=== PATIENT | male | born 1985 | race African-American/Black ===

== ENCOUNTER 2025-07-01 08:46 | Inpatient (IN) | payer OTHER ==
[2025-07-01] MEDS ORDERED: NA CHLORIDE 0.9% 500 ML ONE (09:03)
[2025-07-01 09:48] LABS: Absolute Lymphocytes (CBC) 1.0 K/uL (0.7-4.9); Hematocrit 31.9 % (39.6-49.0); Hemoglobin 10.8 g/dL (13.6-17.9); MCH 30.1 pg (27.0-35.0); MCHC 33.8 g/dL (32.0-36.0); MCV 89.0 fL (80-100); MPV 7.9 fL (7.6-11.3); Nucleated RBC Absolute Count 0.0 (0-0); Nucleated Red Blood Cells % 0.4 % (0-0); RBC Red Blood Cell Count 3.59 M/uL (4.33-5.43); White Blood Count 4.40 thou/uL (4.3-10.9)
[2025-07-01 09:53] LABS: PT Prothrombin Time 13.6 SECONDS (10-13.0); Protime INR 1.21
[2025-07-01 10:00] LABS: Influenza A Ag Negative; Influenza B Ag Positive; SARS-CoV-2 Antigen Rapid Res Negative (Negative)
[2025-07-01 10:11] LABS: ALT/SGPT 28 U/L (16-61); AST/SGOT 34 U/L (15-37); Albumin 3.4 g/dL (3.4-5.0); Albumin/Globulin Ratio 0.9 (1.1-1.8); Alkaline Phosphatase 77 U/L (45-117); Anion Gap 14.6 mEq/L (5.0-15.0); BUN Blood Urea Nitrogen 44 mg/dL (7-18); Globulin 3.9 g/dL (2.3-3.5); Glucose Level 110 mg/dL (74-106); Magnesium 2.1 mg/dL (1.6-2.4); NT PRO-BNP 2770 pg/mL (<125); Potassium 3.6 mEq/L (3.5-5.1)
--- NOTE | 2025-07-01 10:15 | RAD REPORT ---
EXAMINATION: ONE VIEW CHEST XR CLINICAL INDICATION: CONGESTION TECHNIQUE: Frontal chest projection is submitted. Examination is limited by patient positioning and t echnique. COMPARISON: No prior exam. FINDINGS: The lungs are well inflated and clear. The heart is mildly enlarged. No displaced fractures identifie d. IMPRESSION: No acute intrathoracic abnormalities.
[2025-07-01] MEDS ORDERED: OSELTAMIVIR 75 MG CAP PO ONE (10:24)
[2025-07-01 10:36] LABS: Bilirubin Indirect, Calculated 0.2 mg/dL (0.2-0.8)
[2025-07-01 10:37] LABS: Troponin High Sensitivity 518.5 pg/mL (<58.9)
[2025-07-01] MEDS ORDERED: ASPIRIN 81 MG CHEWABLE TABLET ONE (10:50)
--- NOTE | 2025-07-01 10:56 | EDPHYS ---
Physician Documentation [facility] Name: Richard Echevarria Age: 40 yrs Sex: Male : 1985 Arrival Date: 07/01/2025 Time: 08:46 Bed 8 Private MD: YARY Physician Aris Merino HPI: 07/01 08:59 This 40 yrs old Black Male presents to ER via EMS with complaints of General Weakness, kenny Cough. 08:59 The patient or guardian reports cough, flu symptoms. Onset: The symptoms/episode kenny began/occurred 2 day(s) ago. Severity of symptoms: At their worst the symptoms were mild, in the emergency department the symptoms are unchanged. Modifying factors: The symptoms are alleviated by. Associated signs and symptoms: Pertinent positives: fever, rhinorrhea. The patient has experienced similar episodes in the past, several times. Historical: - Allergies: 08:50 No Known Allergies; iw - PMHx: 08:50 dialysis; Hypertensive disorder; iw - PSHx: 08:50 None; iw - Immunization history:: Adult Immunizations unknown. - Infectious Disease History:: Denies. - Social history:: Smoking status: unknown. ROS: 09:00 Constitutional: Negative for fever, chills, and weight loss, Eyes: Negative for injury, kenny pain, redness, and discharge, ENT: Negative for injury, pain, and discharge, Neck: Negative for injury, pain, and swelling, Cardiovascular: Negative for chest pain, palpitations, and edema, Abdomen/GI: Negative for abdominal pain, nausea, vomiting, diarrhea, and constipation, Back: Negative for injury and pain, : Negative for injury, bleeding, discharge, and swelling, MS/Extremity: Negative for injury and deformity, Skin: Negative for injury, rash, and discoloration, Neuro: Negative for headache, weakness, numbness, tingling, and seizure, Psych: Negative for depression, anxiety, suicide ideation, homicidal ideation, and hallucinations, Allergy/Immunology: Negative for hives, rash, and allergies, Endocrine: Negative for neck swelling, polydipsia, polyuria, polyphagia, and marked weight changes, Hematologic/Lymphatic: Negative for swollen nodes, abnormal bleeding, and unusual bruising, 09:00 Respiratory: Positive for cough, with no reported sputum, Exam: 09:00 Constitutional: This is a well developed, well nourished patient who is awake, alert, kenny and in no acute distress. Head/Face: Normocephalic, atraumatic. Eyes: Pupils equal round and reactive to light, extra-ocular motions intact. Lids and lashes normal. Conjunctiva and sclera are non-icteric and not injected. Cornea within normal limits. Periorbital areas with no swelling, redness, or edema. ENT: Nares patent. No nasal discharge, no septal abnormalities noted. Tympanic membranes are normal and external auditory canals are clear. Oropharynx with no redness, swelling, or masses, exudates, or evidence of obstruction, uvula midline. Mucous membranes moist. Neck: Trachea midline, no thyromegaly or masses palpated, and no cervical lymphadenopathy. Supple, full range of motion without nuchal rigidity, or vertebral point tenderness. No Meningismus. Chest/axilla: Normal chest wall appearance and motion. Nontender with no deformity. No lesions are appreciated. Cardiovascular: Regular rate and rhythm with a normal S1 and S2. No gallops, murmurs, or rubs. Normal PMI, no JVD. No pulse deficits. Respiratory: Lungs have equal breath sounds bilaterally, clear to auscultation and percussion. No rales, rhonchi or wheezes noted. No increased work of breathing, no retractions or nasal flaring. Abdomen/GI: Soft, non-tender, with normal bowel sounds. No distension or tympany. No guarding or rebound. No evidence of tenderness throughout. Back: No spinal tenderness. No costovertebral tenderness. Full range of motion. Male : Normal genitalia with no discharge or lesions. Skin: Warm, dry with normal turgor. Normal color with no rashes, no lesions, and no evidence of cellulitis. MS/ Extremity: Pulses equal, no cyanosis. Neurovascular intact. Full, normal range of motion., bilateral aka Neuro: Awake and alert, GCS 15, oriented to person, place, time, and situation. Cranial nerves II-XII grossly intact. Motor strength 5/5 in all extremities. Sensory grossly intact. Cerebellar exam normal. Normal gait. Psych: Awake, alert, with orientation to person, place and time. Behavior, mood, and affect are within normal limits. 09:00 ECG was reviewed by the Attending Physician. Vital Signs: 08:49 BP 110 / 60; Pulse 81; Resp 18; Temp 98.5; Pulse Ox 95% on R/A; Weight 81.65 kg; Height iw 5 ft. 5 in. ; 10:25 BP 106 / 73; Pulse 82; Resp 12; Pulse Ox 98% ; bp 11:26 BP 126 / 86; Pulse 83; Resp 16; Pulse Ox 100% ; bp 08:49 Body Mass Index 29.95 (81.65 kg, 165.1 cm) iw MDM: 08:47 Medical Screening Exam initiated [facility] 09:01 Differential Diagnosis: Bronchitis Influenza Upper Respiratory Infection Sinusitis kenny Pharyngitis Otitis Media Allergic Rhinitis Asthma Exacerbation Viral Syndrome Pneumonia. Data reviewed: vital signs, nurses notes, lab test result(s), EKG, radiologic studies, plain films. Consideration of Admission/Observation Escalation of care including admission/observation considered. I considered the following discharge prescriptions or medication management in the emergency department Medications were administered in the Emergency Department. See MAR. Independent interpretation of the following test(s) in the Emergency Department EKG: See my EKG interpretation above. Test considered but Not performed: Ultrasound no abd usg. Historians other than the Patient: EMS: ems well informed. Care significantly affected by the following chronic conditions: Hypertension, esrd on hd. Counseling: I had a detailed discussion with the patient and/or guardian regarding the historical points, exam findings, and any diagnostic results supporting the discharge/admit diagnosis, lab results, radiology results, the need for outpatient follow up, for definitive care, a family practitioner, an after school teacher. 07/01 08:55 Order name: Basic Metabolic Panel; Complete Time: 10:47 [facility] 07/01 08:55 Order name: CBC with Diff; Complete Time: 10:15 [facility] 07/01 08:55 Order name: LFT's; Complete Time: 10:47 [facility] 07/01 08:55 Order name: Magnesium; Complete Time: 10:47 [facility] 07/01 08:55 Order name: NT PRO-BNP; Complete Time: 10:47 [facility] 07/01 08:55 Order name: PT-INR; Complete Time: 10:15 [facility] 07/01 08:55 Order name: Troponin HS; Complete Time: 10:47 [facility] 07/01 08:55 Order name: Lactate w/ 2H reflex if indic.; Complete Time: 10:47 [facility] 07/01 08:55 Order name: Blood Culture Adult (2) [facility] 07/01 08:55 Order name: COVID-19 Ag + Flu A+B Ag; Complete Time: 10:15 [facility] 07/01 08:56 Order name: UA Rfx Roger Cult if indicated [facility] 07/01 11:11 Order name: Basic Metabolic Panel EDMS 07/01 11:11 Order name: Basic Metabolic Panel EDMS 07/01 11:11 Order name: Basic Metabolic Panel EDMS 07/01 11:11 Order name: CBC with Automated Diff EDMS 07/01 11:11 Order name: CBC with Automated Diff EDMS 07/01 11:11 Order name: CBC with Automated Diff EDMS 07/01 11:11 Order name: Troponin High Sensitivity EDMS 07/01 11:11 Order name: Troponin High Sensitivity EDMS 07/01 11:11 Order name: Troponin High Sensitivity EDMS 07/01 08:55 Order name: XRAY Chest (1 view); Complete Time: 10:35 [facility] 07/01 08:55 Order name: Cardiac monitoring; Complete Time: 09:09 [facility] 07/01 08:55 Order name: EKG - Nurse/Tech; Complete Time: 09:09 [facility] 07/01 08:55 Order name: IV Saline Lock; Complete Time: 09:26 [facility] 07/01 08:55 Order name: Labs collected and sent; Complete Time: 09:25 [facility] 07/01 08:55 Order name: O2 Per Protocol; Complete Time: 09:09 [facility] 07/01 08:55 Order name: O2 Sat Monitoring; Complete Time: 09:09 [facility] Administered Medications: 09:09 Drug: LevOfloxacin PO 500 mg PO once Route: PO; bp 11:27 Follow up: Response: No adverse reaction bp 09:25 Drug: NS 0.9% IV 500 ml 500 ml IV at 125 ml/hr once; to be given as a bolus over 30 bp minutes Volume: 500 ml; Route: IV; Rate: 125 ml/hr; Site: right forearm; 11:27 Follow up: IV Status: Infusion continued upon admission bp 10:29 Drug: Oseltamivir PO 75 mg PO once Route: PO; iw 11:27 Follow up: Response: No adverse reaction bp 10:53 Drug: Aspirin PO Chewable Tablet 324 mg PO once; 81 mg tablets x 4 Route: PO; ss 11:27 Follow up: Response: No adverse reaction bp Disposition Summary: 07/01/25 10:55 Hospitalization Ordered Notes: Hospitalization Status: Observation [facility] Provider: Prince kenny Pavon Location: Telemetry/MedSurg (observation) kenny Condition: Fair kenny Problem: new kenny Symptoms: have improved kenny Bed/Room Type: Standard [facility] Room Assignment: 219(07/01/25 11:15) ss Diagnosis - Fever, unspecified kenny - Influenza due to unidentified influenza virus with other respiratory manifestations kenny - Non ST elevation MA - ELEVATED TROP [facility] Discharge Instructions: - Discharge Summary Sheet kenny - Fever, Adult kenny - Influenza, Adult kenny - Upper Respiratory Infection, Adult kenny - Cool Mist Vaporizer kenny - Dialysis kenny - Upper Respiratory Infection, Adult, [id number] kenny - Influenza, Adult, [id number] kenny - Cough, Adult kenny - Fever, Adult, [id number] kenny Forms: - Medication Reconciliation Form kenny - SBAR form [facility] - Leadership Thank You Letter [facility] Prescriptions: - Tamiflu 75 mg Oral capsule - take 1 tablet ORAL route every 12 hours for 5 days; 10 tablet; Refills: 0, [facility] Product Selection Permitted - levofloxacin 250 mg Oral tablet - take 1 tablet ORAL route once daily; 6 tablet; Refills: 0, Product Selection kenny Permitted Signatures: Dispatcher [employer] EDMS Aris Merino MD MD cha Williams, Irene, RN RN iw Blanchard, Shelby, RN RN ss Peltier, Brian, RN RN bp Botello, Elizabeth eb Corrections: (The following items were deleted from the chart) 08:55 08:55 BASIC METABOLIC PANEL+C.LAB.BRZ ordered. EDMS EDMS 08:55 08:55 CBC+H.LAB.BRZ ordered. EDMS EDMS 08:55 08:55 HEPATIC FUNCTION+C.LAB.BRZ ordered. EDMS EDMS 08:55 08:55 MAGNESIUM+C.LAB.BRZ ordered. EDMS EDMS 08:55 08:55 PROBNP+C.LAB.BRZ ordered. EDMS EDMS 08:55 08:55 PROTIME (+INR)+COAG.LAB.BRZ ordered. EDMS EDMS 08:55 08:55 Troponin High Sensitivity+C.LAB.BRZ ordered. EDMS EDMS 08:55 08:55 LACTATE+C.LAB.BRZ ordered. EDMS EDMS 08:55 08:55 BLOOD CULTURE*+BA.LAB.BRZ ordered. EDMS EDMS 08:55 08:55 COVID-19 Ag + Flu A+B Ag+I.LAB.BRZ ordered. EDMS EDMS 08:56 08:56 Chest Single View+RAD.RAD.BRZ ordered. EDMS EDMS 08:56 08:56 UA Rfx Roger Cult if indicated+U.LAB.BRZ ordered. EDMS EDMS 11:15 10:55 kenny eb 11:15 11:15 219 eb ss
--- NOTE | 2025-07-01 10:56 | ER ---
Nurse's Notes [facility] Name: Richard Echevarria Age: 40 yrs Sex: Male : 1985 Arrival Date: 07/01/2025 Time: 08:46 Bed 8 Private MD: Diagnosis: Fever, unspecified;Influenza due to unidentified influenza virus with other respiratory manifestations;Non ST elevation NE-ELEVATED TROP Presentation: 07/01 08:49 Chief complaint: Patient states: general weakness, cough since last Thursday , has been iw exposed to Flu at the retirement. Coronavirus screen: Client presents with at least one sign or symptom that may indicate coronavirus-19. Ebola Screen: No symptoms or risks identified at this time. Initial Sepsis Screen: Does the patient meet any 2 criteria? No. Patient's initial sepsis screen is negative. Does the patient have a suspected source of infection? No. Patient's initial sepsis screen is negative. 08:49 Method Of Arrival: EMS: [facility] iw 08:49 Acuity: LUCIE 3 iw 08:50 Risk Assessment: Do you want to hurt yourself or someone else? Patient reports no bp desire to harm self or others. Onset of symptoms is unknown. Historical: - Allergies: 08:50 No Known Allergies; iw - PMHx: 08:50 dialysis; Hypertensive disorder; iw - PSHx: 08:50 None; iw - Immunization history:: Adult Immunizations unknown. - Infectious Disease History:: Denies. - Social history:: Smoking status: unknown. Screenin:05 [facility] ED Fall Risk Assessment (Adult) History of falling in the last 3 months, iw including since admission No falls in past 3 months (0 pts) Confusion or Disorientation No (0 pts) Intoxicated or Sedated No (0 pts) Impaired Gait No (0 pts) Mobility Assist Device Used No (0 pt) Altered Elimination No (0 pt) Score/Fall Risk Level 0 - 2 = Low Risk Oriented to surroundings, Maintained a safe environment. Abuse screen: Denies injuries from another. Nutritional screening: No deficits noted. Tuberculosis screening: No symptoms or risk factors identified. Assessment: 09:03 General: Appears in no apparent distress. Behavior is calm, cooperative. General: iw Reports fever for > 3 days, feeling ill for fatigue for >3 days. Neuro: Level of Consciousness is awake, alert, obeys commands, Oriented to person, place, time, situation, Moves all extremities. Full function. Cardiovascular: Patient's skin is warm and dry. Respiratory: Reports cough that is productive, Respiratory effort is even, unlabored, Respiratory pattern is regular, symmetrical. GI: Abdomen is non-distended. Derm: Skin is intact, is healthy with good turgor. Musculoskeletal: Range of motion: intact in all extremities. 10:25 Reassessment: No changes from previously documented assessment. Patient is alert, bp oriented x 3, equal unlabored respirations, skin warm/dry/pink. 10:36 Reassessment: Dr. Merino notified of critical lab value Troponin 518.5. ss 11:27 Reassessment: REPORT SENT FOR 219. bp Vital Signs: 08:49 BP 110 / 60; Pulse 81; Resp 18; Temp 98.5; Pulse Ox 95% on R/A; Weight 81.65 kg; Height iw 5 ft. 5 in. ; 10:25 BP 106 / 73; Pulse 82; Resp 12; Pulse Ox 98% ; bp 11:26 BP 126 / 86; Pulse 83; Resp 16; Pulse Ox 100% ; bp 08:49 Body Mass Index 29.95 (81.65 kg, 165.1 cm) iw ED Course: 08:47 Patient arrived in ED. kenny 08:47 Aris Merino MD is Attending Physician. kenny 08:50 Triage completed. iw 08:50 Arm band placed on. iw 09:00 Arslan Hines, RN is Primary Nurse. bp 09:05 Patient has correct armband on for positive identification. Provided Education on: lab iw draw. Client placed on continuous cardiac and pulse oximetry monitoring. NIBP monitoring applied. fan blade aligner on. 09:13 XRAY Chest (1 view) In Process Unspecified. EDMS 09:30 Initial lab(s) drawn, by me, sent to lab. Inserted saline lock: 22 gauge in right bp forearm, using aseptic technique. Blood collected. Flushed with 10 mL NS. 10:53 Prince Pavon MD is Hospitalizing Provider. kenny 11:25 No provider procedures requiring assistance completed. Patient admitted, IV remains in bp place. Administered Medications: 09:09 Drug: LevOfloxacin PO 500 mg PO once Route: PO; bp 11:27 Follow up: Response: No adverse reaction bp 09:25 Drug: NS 0.9% IV 500 ml 500 ml IV at 125 ml/hr once; to be given as a bolus over 30 bp minutes Volume: 500 ml; Route: IV; Rate: 125 ml/hr; Site: right forearm; 11:27 Follow up: IV Status: Infusion continued upon admission bp 10:29 Drug: Oseltamivir PO 75 mg PO once Route: PO; iw 11:27 Follow up: Response: No adverse reaction bp 10:53 Drug: Aspirin PO Chewable Tablet 324 mg PO once; 81 mg tablets x 4 Route: PO; ss 11:27 Follow up: Response: No adverse reaction bp Medication: 09:04 VIS not applicable for this client. iw Outcome: 10:55 Decision to Hospitalize by Provider. kenny 11:26 Admitted to Med/surg accompanied by tech, via wheelchair, room 219, bp 11:26 Condition: stable 11:26 Instructed on the need for admit, 12:43 Patient left the ED. iw Signatures: Dispatcher [employer] EDMS Aris Merino MD MD cha Williams, Irene, RN RN Daly Sarkar, DARYL RN Arslan Hines, RN RN bp
[2025-07-01] MEDS ORDERED: ONDANSETRON 4 MG/2 ML VIAL IV PRN (11:07)
[2025-07-01] MEDS ORDERED: ACETAMINOPHEN 325 MG TABLET PO PRN (11:07)
[2025-07-01] MEDS ORDERED: HYDROCODONE/CHLORPHEN 5 ML/OSYR PO PRN (11:09)
[2025-07-01] MEDS ORDERED: EPOETIN ALFA 10,000 UNIT/ML VIAL IV SCH (12:30)
--- NOTE | 2025-07-01 12:53 | CON ---
Date of Consultation: 07/01/2025 Additional Consulting Physician: Dr. Merino. Reason For Consultation: Elevated BUN and creatinine, fluid management, electrolyte imbalance, end-s tage renal disease. History Of Present Illness: This is a 40-year-old gentleman with significant past medical history of end-stage renal disease, started almost 1 year back secondary to hypertension nephrosclerosis, hyper tension, hyperlipidemia, CAD status post cardiac cath and TN back in September 2024. The patient dial yzed at [facility], dialyzed TTS, last dialysis was uneventful. The patient came to the hospital complaining from cough, shortness of breath for the last few days, found to have alex ctrolyte imbalance. For that reason, we have been consulted. The patient denied taking any nonstero idal, no IV contrast. Past Medical History: Includes: 1. End-stage renal disease. 2. Hypertension. 3. Hyperlipidemia. 4. CAD. Family History: Positive for hypertension and diabetes. Social History: Active smoker. Denied alcohol. Denied drugs abuse. Past Surgical History: Include TDC. Review of Systems: Head and Neck: No red eye. No ear pain. GI: No nausea. No vomiting. : No polyuria. No dysuria. No hematuria. SAP BI DEVELOPER: Not applicable. Respiratory: Has shortness of breath. Has cough. No sputum. Cardiovascular: No chest pain. Endocrine: No polydipsia. Skin: No rash. Neuro: Generalized fatigue. Musculoskeletal: Generalized weakness. Physical Examination: General: When I saw the patient, the patient is lying in bed. Vital Signs: Blood pressure of 137/70, pulse of 88. Chest: Clear to auscultation. Heart: S1, S2. Systolic murmur. Abdomen: Soft, nontender. Extremities: No edema. Neurologic: Alert. No focality. Laboratory Data: WBC 4.4, hemoglobin 10.8. Sodium 137, potassium 3.6, bicarb 25, BUN 44, creatinine 12.6, GFR of 5, calcium 8.9, albumin 3.4. Current Medications: The patient is on include heparin, carvedilol 12.5, amlodipine, hydralazine, Ty lenol. Assessment And Plan: 1. End-stage renal disease, normal volume. I am going to go ahead and arrange for dialysis today and we will follow up the patient. 2. Hypertension, controlled, optimal. Continue current treatment. 3. Secondary hyperparathyroidism. I am going to go ahead and follow up the phosphorus level. 4. Anemia of chronic kidney disease. Start the patient on LESLY. 5. Hyponatremia, dilutional. Will be corrected with dialysis. 6. Hypokalemia. No need for supplement. Will be corrected with dialysis. Thank you Dr. Merino for allowing us to participate in the care of your patient. NILO Voice ID: [id number] Report ID: [id number]
[2025-07-01 13:08] VITALS: O2SAT 100
[2025-07-01 13:30] VITALS: BMI 27.9
[2025-07-01] MEDS: HYDRALAZINE HCL 25 MG TABLET PO SCH (14:04)
--- NOTE | 2025-07-01 16:18 | P.HP ---
Certification for Inpatient Patient admitted to: Inpatient With expected LOS: >2 Midnights Patient will require the following post-hospital care: None Practitioner: I am a practitioner with admitting privileges, knowledge of patient current condition, hospital course, and medical plan of care. Services: Services provided to patient in accordance with Admission requirements found in Title 42 Section 412.3 of the Code of Federal Regulations Patient History Date of Service: 07/01/25 Reason for admission: NSTEMI History of Present Illness: 40-year-old male with history of ESRD on HD TTS, hypertension presents the emergency department chief complaint of cough, weakness, fevers. He reports be exposed to somebody with influenza at the skilled nursing that he is staying at currently, he developed symptoms including cough and chills on Tuesday 06/26 and had been feeling unwell since then. He reports the emergency department today for generalized weakness. He denies any chest pain or shortness of breath at this time. Patient was evaluated in the ER his white blood cell count was normal hemoglobin 10.8 hematocrit 31.9 creatinine 12.6 GFR 5 glucose 110 lactic acid less than 0.8 high sensitive troponin was 518.5 and BNP is 2770. EKG without STEMI criteria, chest x-ray was negative for acute findings. This is patient's for similar hospital, he typically goes to [facility] in the [place] area, he will be admitted for elevated troponin and close monitoring as well as HD. Allergies No Known Allergies Allergy (Verified 07/01/25 12:57) Home Medications: Amlodipine [Norvasc] 10 mg PO DAILY 07/01/25 Hydralazine [Apresoline] 25 mg PO TID 07/01/25 carvediloL [Coreg] 12.5 mg PO BID 07/01/25 - Past Medical/Surgical History Has patient received pneumonia vaccine in the past: Yes -: CKD -: HTN -: Dialysis fistula Psychosocial/ Personal History: Currently living at the [facility] in [place] - Social History Smoking Status: Never smoker Alcohol use: No CD- Drugs: No Caffeine use: No Place of Residence: Homeless Review of Systems 10-point ROS is otherwise unremarkable General: Malaise Respiratory: Cough Physical Examination - Vital Signs Temperature: 98.5 F Blood Pressure: 126/86 Pulse: 83 Respirations: 16 Pulse Ox (%): 97 - Physical Exam General: Alert, In no apparent distress, Oriented x3 HEENT: Atraumatic, PERRLA, EOMI Neck: Supple, 2+ carotid pulse no bruit, No LAD, Without JVD or thyroid abnormality Respiratory: Clear to auscultation bilaterally, Normal air movement Cardiovascular: Regular rate/rhythm, Normal S1 S2 Gastrointestinal: Normal bowel sounds, No tenderness Musculoskeletal: No tenderness Integumentary: No rashes Neurological: Normal gait, Normal speech, Normal strength at 5/5 x4 extr, Normal affect - Studies Laboratory Data (last 24 hrs) 07/01/25 07/01/25 07/01/25 09:20 09:20 09:20 WBC 4.40 Hgb 10.8 L Hct 31.9 L Plt Count 225 PT 13.6 H INR 1.21 Sodium 137 Potassium 3.6 BUN 44 H Creatinine 12.60 H Glucose 110 H Magnesium 2.1 Total Bilirubin 0.4 AST 34 ALT 28 Alkaline Phosphatase 77 Assessment and Plan - Plan Assessment: NSTEMI ESRD on HD TTS Hypertension Plan: NSTEMI Trend troponin and monitor on telemetry Cardiology consultation Aspirin, statin Denies chest pain, shortness of breath Chest x-ray negative for acute findings, EKG without STEMI criteria Likely related to decreased renal clearance, no previous labs available for review ESRD on HD TTS Nephrology consulted, patient will be dialyzed today Nephrology to follow Hypertension Home medications continued DVT PPX: Heparin subcu Code status: Full code Discharge Plan: Home Plan to discharge in: 48 Hours - Advance Directives Does patient have a Living Will: No Does patient have a Durable POA for Healthcare: No - Code Status/Comfort Care Code Status Assessed: Yes (Full code) Critical Care: No Time Spent Managing Pts Care (In Minutes): 68
[2025-07-01 17:13] LABS: Hepatitis B Surface Ab - Quant > 1000.00 mIU/mL (<8.0); Hepatitis B surface AG Interp. Nonreactive (Nonreactive)
[2025-07-01 17:14] LABS: HBsAG Nonreactive Report Report
--- NOTE | 2025-07-01 20:13 | CON ---
Date of Consultation: 07/01/2025 Reason For Consultation: Elevated troponin. History Of Present Illness: A 40-year-old male, history of end-stage renal disease, on hemodialysis, hypertension, presented to the emergency room with generalized weakness, fever, and cough. Denies h aving any chest pain. Was diagnosed with influenza. They did cardiac enzymes on him and they were s lightly elevated but trending down. The patient at this moment is comfortable, but at the bedside he has no chest pain and did not have any pain coming in. Past Medical History: Chronic kidney disease, hypertension, is on dialysis. Medications: Refer reconciliation sheet for detailed list. Allergies: NO KNOWN DRUG ALLERGIES. Family History: No premature coronary artery disease or cancer. Social History: He does not smoke or drink or use any drugs and he is homeless. Review of Systems: All systems reviewed and they were negative except as mentioned in the HPI. Physical Examination: Vital Signs: Reviewed. Head and Neck: Pupils are equal, reactive to light. Intact eye movements. Neck: No JVD. No cervical lymphadenopathy. Neck is supple. Thyroid is not enlarged. Lungs: Rhonchi bilaterally. No accessory muscle use or muscle retraction. Heart: Regular rate and rhythm. No extra sounds. Abdomen: Soft, nontender. Bowel sounds positive. No organomegaly. No masses or hernia. No rigidi ty or rebound. Extremities: No edema, clubbing, cyanosis. Intact pulses. Skin: No rash. No nodules. Neurologic: Alert, awake, oriented x3. No acute focal deficits appreciated. Investigations: First troponin was 518, down to 496. BUN 44, creatinine is 12. Hemoglobin is 10.8. Assessment/recommendation: 1. Elevated troponin. This is demand. The patient has no symptoms. Likely the combination of the i nfluenza plus end-stage renal disease, leaked mild troponin at this moment. I recommend outpatient c ardiac workup once he has recovers from the influenza. He can be seen as an outpatient to obtain an echo and a stress test. No inpatient cardiac workup is needed. I believe this is demand ischemia. 2. Elevated NT-proBNP, probably in part due to the end-stage renal disease. Plan for outpatient echo . 3. End-stage renal disease, on hemodialysis. 4. Influenza B. Currently under treatment by primary hospitalist. 5. The patient is hemodynamically stable. 6. Cardiology will sign off. To follow up with me post discharge for further cardiac evaluation. SR/MODL Voice ID: [id number] Report ID: [id number]
[2025-07-01] MEDS: ATORVASTATIN 40 MG TAB PO SCH (21:00)
[2025-07-01] MEDS: HEPARIN 5000 UNIT/ML 1 ML VIAL SQ SCH (21:00)
[2025-07-02 05:01] LABS: Absolute Lymphocytes (CBC) 1.1 K/uL (0.7-4.9); Hematocrit 31.4 % (39.6-49.0); Hemoglobin 11.0 g/dL (13.6-17.9); MCH 31.0 pg (27.0-35.0); MCHC 35.0 g/dL (32.0-36.0); MCV 88.6 fL (80-100); MPV 7.9 fL (7.6-11.3); Nucleated RBC Absolute Count 0.0 (0-0); Nucleated Red Blood Cells % 0.1 % (0-0); RBC Red Blood Cell Count 3.54 M/uL (4.33-5.43); White Blood Count 4.00 thou/uL (4.3-10.9)
[2025-07-02 05:39] LABS: Anion Gap 11.6 mEq/L (5.0-15.0); BUN Blood Urea Nitrogen 27.0 mg/dL (7-18); Glucose Level 104.0 mg/dL (74-106); Potassium 3.6 mEq/L (3.5-5.1)
--- NOTE | 2025-07-02 08:10 | P.DS ---
Admission Date: 07/01/25 Discharge Date: 07/02/25 Reason for Admission: NSTEMI Brief History of Present Illness: 40-year-old male with history of ESRD on HD TTS, hypertension presents the emergency department chief complaint of cough, weakness, fevers. He reports be exposed to somebody with influenza at the [facility]way that he is staying at currently, he developed symptoms including cough and chills on Tuesday 06/26 and had been feeling unwell since then. He reports the emergency department today for generalized weakness. He denies any chest pain or shortness of breath at this time. Patient was evaluated in the ER his white blood cell count was normal hemoglobin 10.8 hematocrit 31.9 creatinine 12.6 GFR 5 glucose 110 lactic acid less than 0.8 high sensitive troponin was 518.5 and BNP is 2770. EKG without STEMI criteria, chest x-ray was negative for acute findings. This is patient's for similar hospital, he typically goes to [facility] in the [place] area, he will be admitted for elevated troponin and close monitoring as well as HD. Hospital Course: Assessment: NSTEMI ESRD on HD TTS Hypertension Patient was admitted to the hospital for elevated troponin, influenza B, ESRD on HD. He underwent inpatient HD on 07/01, has had no chest pain. He was seen by cardiology, troponin trended flat and it is recommended that he follows up outpatient for stress test. He denies any chest pain, has not had any chest pain throughout his hospitalization or prior to hospitalization. Patient should continue his home medications including hydralazine, carvedilol, amlodipine and arrange for outpatient follow-up with cardiology. Vital Signs/Physical Exam: Temp Pulse Resp BP Pulse Ox 99.0 F 86 18 141/86 H 95 07/02/25 04:00 07/02/25 04:00 07/02/25 04:00 07/02/25 04:00 07/02/25 04:00 General: Alert, In no apparent distress, Oriented x3 HEENT: Atraumatic, PERRLA Neck: Supple, JVD not distended Respiratory: Clear to auscultation bilaterally, Normal air movement Cardiovascular: Regular rate/rhythm, Normal S1 S2 Gastrointestinal: Normal bowel sounds, No tenderness Musculoskeletal: No tenderness Integumentary: No rashes Neurological: Normal speech, Normal tone Laboratory Data at Discharge: WBC 4.00 thou/uL (4.3-10.9) L 07/02/25 04:08 Hgb 11.0 g/dL (13.6-17.9) L 07/02/25 04:08 Hct 31.4 % (39.6-49.0) L 07/02/25 04:08 Plt Count 193 thou/uL (152-406) 07/02/25 04:08 PT 13.6 SECONDS (10-13.0) H 07/01/25 09:20 INR 1.21 07/01/25 09:20 Sodium 136 mEq/L (136-145) 07/02/25 04:08 Potassium 3.6 mEq/L (3.5-5.1) 07/02/25 04:08 BUN 27 mg/dL (7-18) H 07/02/25 04:08 Creatinine 9.21 mg/dL (0.70-1.30) H 07/02/25 04:08 Glucose 104 mg/dL (74-106) 07/02/25 04:08 Magnesium 2.1 mg/dL (1.6-2.4) 07/01/25 09:20 Total Bilirubin 0.4 mg/dL (0.2-1.0) 07/01/25 09:20 AST 34 U/L (15-37) 07/01/25 09:20 ALT 28 U/L (16-61) 07/01/25 09:20 Alkaline Phosphatase 77 U/L (45-117) 07/01/25 09:20 Home Medications: Amlodipine [Norvasc] 10 mg PO DAILY 07/01/25 Hydralazine [Apresoline] 25 mg PO TID 07/01/25 carvediloL [Coreg] 12.5 mg PO BID 07/01/25 Physician Discharge Instructions: Patient was admitted to the hospital for elevated troponin, influenza B, ESRD on HD. He underwent inpatient HD on 07/01, has had no chest pain. He was seen by cardiology, troponin trended flat and it is recommended that he follows up outpatient for stress test. He denies any chest pain, has not had any chest pain throughout his hospitalization or prior to hospitalization. Patient should continue his home medications including hydralazine, carvedilol, amlodipine and arrange for outpatient follow-up with cardiology. Followup: NONE,NONE [Primary Care Provider] - Time spent managing pt's care (in minutes): 35
[2025-07-02] MEDS: AMLODIPINE 10 MG TAB PO SCH (09:44)
[2025-07-02] MEDS: ASPIRIN EC 81 MG TAB PO SCH (09:45)
--- NOTE | 2025-07-02 10:16 | P.PN ---
Date of Service: 07/02/25 Progress note 40-year-old gentleman with significant past medical history of endstage renal disease, started almost 1 year back secondary to hypertension nephrosclerosis, hypertension, hyperlipidemia, CAD status post cardiac cath and NV back in September 2024. The patient dialyzed at [facility], dialyzed TTS, last dialysis was uneventful. The patient came to the hospital complaining from cough, shortness of breath for the last few days, found to have electrolyte imbalance. For that reason, we have been consulted. The patient denied taking any nonsteroidal, no IV contrast Physical exam Temp Pulse Resp BP Pulse Ox 98.3 F 88 20 144/76 H 96 07/02/25 08:00 07/02/25 09:44 07/02/25 08:00 07/02/25 09:44 07/02/25 08:00 General: When I saw the patient, the patient is lying in bed. Vital Signs: Blood pressure of 137/70, pulse of 88. Chest: Clear to auscultation. Heart: S1, S2. Systolic murmur. Abdomen: Soft, nontender. Extremities: No edema. Neurologic: Alert. No focality. Laboratory Tests 07/01/25 07/01/25 07/01/25 09:20 09:20 09:20 WBC 4.40 RBC 3.59 L Hgb 10.8 L Hct 31.9 L MCV 89.0 MCH 30.1 MCHC 33.8 RDW 16.3 H Plt Count 225 MPV 7.9 Neutrophils % 63.1 Lymphocytes % 22.7 Monocytes % 8.5 Eosinophils % 4.8 H Basophils % 0.9 Absolute Neutrophils 2.8 Absolute Lymphocytes 1.0 Absolute Monocytes 0.4 Absolute Eosinophils 0.2 Absolute Basophils 0.0 PT 13.6 H INR 1.21 Sodium 137 Potassium 3.6 Chloride 101 Carbon Dioxide 25 Anion Gap 14.6 BUN 44 H Creatinine 12.60 H Est GFR (CKD-EPI) 5 L Glucose 110 H Lactic Acid Calcium 8.9 Magnesium 2.1 Total Bilirubin 0.4 Direct Bilirubin < 0.2 Indirect Bilirubin 0.2 AST 34 ALT 28 Alkaline Phosphatase 77 Troponin I High Sens 518.5 H* NT-Pro-B Natriuret Pep 2770 H Serum Total Protein 7.3 Albumin 3.4 Globulin 3.9 H Albumin/Globulin Ratio 0.9 L Influenza Type A Ag Influenza Type B Ag SARS-CoV-2 Ag (Rapid) SARS CoV-2 Rapid Comm 07/01/25 07/01/25 09:20 09:20 WBC RBC Hgb Hct MCV MCH MCHC RDW Plt Count MPV Neutrophils % Lymphocytes % Monocytes % Eosinophils % Basophils % Absolute Neutrophils Absolute Lymphocytes Absolute Monocytes Absolute Eosinophils Absolute Basophils PT INR Sodium Potassium Chloride Carbon Dioxide Anion Gap BUN Creatinine Est GFR (CKD-EPI) Glucose Lactic Acid < 0.8 Calcium Magnesium Total Bilirubin Direct Bilirubin Indirect Bilirubin AST ALT Alkaline Phosphatase Troponin I High Sens NT-Pro-B Natriuret Pep Serum Total Protein Albumin Globulin Albumin/Globulin Ratio Influenza Type A Ag Negative Influenza Type B Ag Positive A SARS-CoV-2 Ag (Rapid) Negative SARS CoV-2 Rapid Comm See below Acetaminophen (Acetaminophen 325 Mg Tablet) 650 mg PO Q4HP PRN PRN Reason: Pain scale 2-4 (Mild) Amlodipine Besylate (Amlodipine 10 Mg Tab) 10 mg PO DAILY [facility] Last Admin: 07/02/25 09:44 Dose: 10 mg Aspirin (Aspirin Ec 81 Mg Tab) 81 mg PO DAILY [facility] Last Admin: 07/02/25 09:45 Dose: 81 mg Atorvastatin Calcium (Atorvastatin 40 Mg Tab) 40 mg PO BEDTIME [facility] Last Admin: 07/01/25 21:00 Dose: Not Given Carvedilol (Carvedilol 12.5 Mg Tab) 12.5 mg PO BID 6AM 6PM [facility] Last Admin: 07/02/25 05:23 Dose: 12.5 mg Chlorphenir/Hydrocodone Polistirex (Hydrocodone/Chlorphen 5 Ml/Osyr) 5 ml PO BID PRN PRN Reason: COUGH Heparin Sodium (Porcine) (Heparin 5000 Unit/Ml 1 Ml Vial) 5,000 unit SQ Q12HR [facility] Last Admin: 07/02/25 09:44 Dose: 5,000 unit Hydralazine HCl (Hydralazine Hcl 25 Mg Tablet) 25 mg PO TID [facility] Last Admin: 07/02/25 09:44 Dose: 25 mg Ondansetron HCl (Ondansetron 4 Mg/2 Ml Vial) 4 mg IV Q6HP PRN PRN Reason: NAUSEA / VOMITING assessment And Plan: 1. End-stage renal disease, normal volume. Status post dialysis yesterday patient clear from the renal standpoint for DC planning 2. Hypertension, controlled, optimal. Continue current treatment. 3. Secondary hyperparathyroidism. I am going to go ahead and follow up the phosphorus level. 4. Anemia of chronic kidney disease. Start the patient on LESLY. 5. Hyponatremia, dilutional. Will be corrected with dialysis. 6. Hypokalemia. No need for supplement. Will be corrected with dialysis
[2025-07-02 14:41] VITALS: TEMP 98.2
[2025-07-02 16:51] VITALS: BP 138/78
== END 2025-07-02 18:02 | disposition home or self-care (01) | DRG 280 ==
LOC: ER 08:46 → ERHOLD 11:07 → 2ND 11:32
PROVIDERS: ADMIT Hospitalist; ATTEND Hospitalist
PROC: 5A1D70Z Performance of Urinary Filtration, Intermittent, Less than 6 Hours Per Day (ICD-10-PCS; principal; 2025-07-01)
DX: I21.4 Non-ST elevation (NSTEMI) myocardial infarction (principal); N18.6 End stage renal disease; I12.0 Hypertensive chronic kidney disease with stage 5 chronic kidney disease or end stage renal disease; E87.1 Hypo-osmolality and hyponatremia; N25.81 Secondary hyperparathyroidism of renal origin; Z99.2 Dependence on renal dialysis; Z11.52 Encounter for screening for COVID-19; I25.10 Atherosclerotic heart disease of native coronary artery without angina pectoris; Z98.890 Other specified postprocedural states; I25.2 Old myocardial infarction; E78.5 Hyperlipidemia, unspecified; E87.6 Hypokalemia; D63.1 Anemia in chronic kidney disease; J10.1 Influenza due to other identified influenza virus with other respiratory manifestations
CPT/HCPCS: 36415; 71045; 80048; 80076; 83605; 83735; 83880; 84484; 85025; 85610; 86706; 87040; 87340; 87428; 90935; 93005; 96360; 96361; 99285; J1644; J7040